=== PATIENT | female | born 1960 | race Caucasian/White ===

== ENCOUNTER 2017-02-20 17:17 | Emergency (ER) | payer MEDICAID, OTHER ==
--- NOTE | 2017-02-20 17:39 | Emergency Department Record ---
History of Present Illness - General Chief Complaint: Numbness Stated Complaint: SWOLLEN/NUMB/PAIN LT ARM Time Seen by Provider: 02/20/17 17:37 Source: Patient Mode of Arrival: Ambulatory Limitations: No limitations - History of Present Illness Initial Comments: The patient is here due to feeling her L arm is numb and swollen for 6 hours. She has a hx of arm DVT's and it feels like another one. There is no reported CP , SOB, dyspnea, fever, chills, or cough. The patient also feels like her L eye area is swollen also. She does take Xarelto for DVT and was off it for some time but restarted it 3-4 weeks ago. Onset/Timin -: Hour(s) Location: Left arm, Left face Quality: Numb, Tingling - [place] Coma Scale Eye Response: (4) Open spontaneously Motor Response: (6) Obeys commands Verbal Response: (5) Oriented [place] Total: 15 - Related Data Home Medications: Home Medications Medication Instructions Recorded Confirmed Last Taken Alpha Lipoic Acid 600 mg PO BID 02/20/17 02/20/17 02/20/17 Diazepam [Valium] 2 mg PO TID 02/20/17 02/20/17 02/20/17 Ergocalciferol (Vitamin D2) 50,000 unit PO WEEKLY 02/20/17 02/20/17 02/20/17 [Vitamin D2] Fentanyl [Duragesic] 100 mcg TD Q72H 02/20/17 02/20/17 Unknown Fluoxetine HCl [Prozac] 20 mg PO DAILY 02/20/17 02/20/17 02/20/17 Folic Acid 1 mg PO DAILY 02/20/17 02/20/17 02/20/17 Guaifenesin/Dm/Pseudoephedrine 474 ml PO DAILY 02/20/17 02/20/17 02/20/17 [Actinel Liquid] Hydroxychloroquine Sulfate 200 mg PO DAILY 02/20/17 02/20/17 02/20/17 [Plaquenil] Lansoprazole [Prevacid] 30 mg PO BID 02/20/17 02/20/17 02/20/17 Levothyroxine Sodium [Synthroid] 137 mcg PO DAILY 02/20/17 02/20/17 02/20/17 Melatonin 5 mg PO QHS 02/20/17 02/20/1717 Methocarbamol [Robaxin-750] 750 mg PO QID 02/20/17 02/20/17 02/20/17 Methotrexate [Xatmep] 2.5 mg PO WEEKLY 02/20/17 02/20/17 02/20/17 Ondansetron HCl [Zofran] 4 mg PO BID 02/20/17 02/20/17 02/20/17 Oxycodone HCl/Acetaminophen 1 each PO Q6H PRN 02/20/17 02/20/17 02/20/17 [Percocet 7.5mg/325mg] Pilocarpine HCl [Salagen] 5 mg PO TID 02/20/17 02/20/17 02/20/17 Pregabalin [Lyrica] 50 mg PO TID 02/20/17 02/20/17 02/20/17 Propranolol HCl [Inderal LA] 80 mg PO DAILY 02/20/17 02/20/17 02/20/17 Rivaroxaban [Xarelto] 10 mg PO DAILY 02/20/17 02/20/17 02/20/17 Allergies/Adverse Reactions: Allergies Allergy/AdvReac Type Severity Reaction Status Date / Time acetaminophen [From Vicodin] AdvReac NAUSEA AND Verified 02/20/17 17:35 VOMITING hydrocodone [From Vicodin] AdvReac NAUSEA AND Verified 02/20/17 17:35 VOMITING Travel Screening - Travel/Exposure Within Last 30 Days Have you traveled within the last 30 days?: No - Travel/Exposure Within Last Year Have you traveled outside the [place] in the last year?: No - Additonal Travel Details Have you been exposed to anyone with a communicable illness?: No - Travel Symptoms Symptom Screening: None Review of Systems Constitutional: Denies: Chills, Fever, Malaise, Weakness Eyes: Denies: Eye discharge ENT: Denies: Congestion Respiratory: Denies: Cough, Dyspnea Cardiovascular: Denies: Chest pain, Dyspnea on exertion, Palpitations Neurological: Denies: Abnormal gait, Confusion, Weakness Past Medical History - SOCIAL HISTORY Smoking Status: Never smoker Alcohol Use: None Drug Use: None - RESPIRATORY Hx Respiratory Disorders: Yes Hx Pneumonia: Yes - CARDIOVASCULAR Hx Cardio Disorders: No - NEURO Hx Neuro Disorders: Yes Hx CVA: Yes Hx Dementia: Yes Hx Seizures: Yes - GI Hx GI Disorders: Yes Hx Irritable Bowel: Yes Hx Nausea/Vomiting: Yes Comment:: gastric bypass - Hx Genitourinary Disorders: No - ENDOCRINE Hx Endocrine Disorders: Yes Comment:: lupus, connective tissue disease. - PSYCH Hx Psych Problems: Yes Hx Anxiety: Yes Hx Depression: Yes - HEMATOLOGY/ONCOLOGY Hx Hematology/Oncology Disorders: Yes Hx Cancer: Yes (breast) Hx Chemotherapy: Yes Hx Radiation Therapy: Yes Hx Blood Transfusions: Yes Hx Blood Transfusion Reaction: No Family Medical History Any Significant Family History?: No Physical Exam - General General Appearance: Alert, Oriented x3, Cooperative, No acute distress - Head Head exam: Atraumatic, Normocephalic, Normal inspection - Eye Eye exam: Normal appearance, PERRL, Periorbital swelling (L very mild and nontender.). negative: Periorbital tenderness - ENT Throat exam: Normal inspection. negative: Tonsillar erythema, Tonsillar exudate - Neck Neck exam: Normal inspection, Full ROM. negative: Tenderness - Respiratory Respiratory exam: Normal lung sounds bilaterally. negative: Respiratory distress - Cardiovascular Cardiovascular Exam: Regular rate, Normal rhythm, Normal heart sounds - GI/Abdominal GI/Abdominal exam: Soft, Normal bowel sounds. negative: Tenderness - Extremities Extremities exam: Full ROM. negative: Normal inspection (There is mild edema to the L arm diffusely from the shoulder to the hand. The radial pulses are strong and equal bilaterally.), Calf tenderness, Tenderness - Skin Skin exam: Pallor Course Vital Signs 02/20/17 17:36 Temperature 98.7 F Pulse Rate [ 66 Pulse Ox Probe] Respiratory 18 Rate Blood Pressure 91/57 [Left Arm] Pulse Ox 95 - Reevaluation(s) Reevaluation #1: The patient is doing well. I did discuss the options with her and she would like the doppler test tonight and would like to go to [facility]. Because of that I did discuss the case with Dr. Davenport and he accepts the patient in an ER to ER transfer. The patient is very stable at this time and is up walking around with no difficulty or problems. She will drive to [facility] ER for the doppler test. I also did discuss her low Bp with her and she state that is normal for her. She has no dizziness or lightheadedness and is ambulating normally. 02/20/17 18:33 02/20/17 18:50 Medical Decision Making - Data Complexity MDM Data: Labs Ordered and/or Reviewed, X-Ray Ordered and/or Reviewed - Lab Data Result diagrams: 02/20/17 17:54 02/20/17 17:54 - Radiology Data Radiology results: Report reviewed (CXR: No acute process per Rad.) Disposition Disposition: Transfer Clinical Impression: Left arm swelling Disposition: Acute Care Hospital Transfer Transfer To: [facility] Reason For Transfer: Doppler Accepting Physician: Ethel Time Discussed w/Accepting Physician: 18:35 Condition: (2) Stable Forms: Patient Portal Access Time of Disposition: 18:35 Quality - Quality Measures Quality Measures: N/A - Blood Pressure Screening View Details: Yes Does Patient Have Any of the Following: No Blood Pressure Classification: Normal BP Reading Systolic Measurement: 88 Diastolic Measurement: 50 Screening for High Blood Pressure: < Normal BP, F/U Not Required > [G8783]
[2017-02-20 18:01] LABS: EOS % 0.4 % (0-6); GRAN % 77.4 % (47-80); HEMATOCRIT 32.7 % (35.0-47.0); HEMOGLOBIN 10.6 gm/dl (11.6-16.0); LYMPH % 17.8 % (16-45); MEAN CORPUSCULAR HGB CONC 32.4 g/dl (32-36); MEAN PLATELET VOLUME 10.4 fl (7.4-10.4); MONO % 4.4 % (0-9); PLATELET COUNT 106 K/uL (130-400); RED BLOOD COUNT 3.37 M/uL (3.80-5.40); RED CELL DISTRIBUTION WIDTH 13.8 % (11.5-14.5); WHITE BLOOD COUNT W/O DIFF 2.7 K/uL (4.2-12.2)
[2017-02-20 18:02] LABS: MEAN CORPUSCULAR HEMOGLOBIN 31.4 pg (27-33)
[2017-02-20 18:15] LABS: INR 1.21; PARTIAL THROMBOPLASTIN TIME 31.7 SECONDS (24.5-39.1); PROTHROMBIN TIME (PATIENT) 13.1 SECONDS (9.5-12.1)
[2017-02-20 18:19] LABS: ALB/GLOB RATIO 1.5 (1.1-1.8); ALBUMIN 3.6 g/dL (4.0-5.0); ALKALINE PHOSPHATASE 120 U/L (35-104); ALT/SGPT 17 U/L (<33); AST/SGOT 23 U/L (10.0-35.0); BLOOD UREA NITROGEN 15 mg/dL (6-20); CREATININE 0.7 mg/dL (0.5-0.9); EST GLOMERULAR FILTRATION RATE > 60 mL/min; GLUCOSE,RANDOM 118 mg/dL (74-109)
--- NOTE | 2017-02-21 14:50 | RADIOLOGY REPORT ---
EXAM: CHEST, TWO VIEWS HISTORY: PATIENT HAS SWELLING AND NUMBNESS IN THE LEFT ARM. PATIENT HAS A HISTORY OF BLOOD CLOTS IN THE LEFT ARM. TECHNIQUE: Two views of the chest are provided without comparison examinations. The examination is limited due to right hemithorax periphery being cut off from the field of view. FINDINGS: The cardiomediastinal silhouette is within normal limits for size and contour. The qing appear unremarkable. There is a loop recorder identified on the left anterior chest. Postoperative changes are identified in the region of the left axilla. There is no radiographic evidence of a focal infiltrate or pleural effusion. Within the limits of the examination, no gross pneumothorax is noted. Blunting of the right costophrenic angle may be related to pleural thickening. IMPRESSION: LIMITED CHEST X-RAY DEMONSTRATES NO GROSS RADIOGRAPHIC EVIDENCE OF AN ACUTE INTRATHORACIC PROCESS DISCUSSED ABOVE. JOB NUMBER: [id number] MTDD
== END 2017-02-20 18:48 | disposition short-term general hospital (02) ==
LOC: ER 17:17
DX: R60.0 Localized edema (principal); R20.0 Anesthesia of skin
CPT/HCPCS: 71020; 80053; 85025; 85379; 85610; 85730; 99283; 99284

== ENCOUNTER 2017-05-23 11:23 | Emergency (ER) | payer MEDICAID ==
--- NOTE | 2017-05-23 11:44 | Emergency Department Record ---
History of Present Illness - General Chief Complaint: Seizures Stated Complaint: LEFT SIDE WEAKNESS Time Seen by Provider: 05/23/17 11:26 Source: Patient, EMS Mode of Arrival: EMS Limitations: No limitations - History of Present Illness Initial Comments: 56 yo female presents with several concerns. She reports that she had a seizure today. This was the first seizure in about one year. She reports she had had seizures since prior strokes about 2 years ago. The seizure today lasted about 5 minutes per EMS. The patient returned to baseline. She presents with about 3 days of Left facial, arm and foot numbness that is new. She reports her walking for about a week has been very difficult with stumbling. She does not normally use assistance to walk. She has been using chairs and holding doorways to walk. She denies a fall in the last week. Her prior CVA gave her left sided weakness. She is on Xarelto. She has been treated for cervical cancer and breast cancer in the past. Her PCP, Neurologist and Psychiatrist are in [place]. 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 No recent headaches, christian pain or vision loss. Hx of Lupus, DVT, Gastric bypass, Hypothyroid, DVT's, fibromyalgia, Hx of a Port. MD Complaint: Seizure -: Hour(s) (1) Description of Episode: Loss of consciousness -: Minutes(s) (5) Witnessed: Yes - by bystander Trauma: No Seizure History: Known seizure disorder (Last Seizure was one year ago) Place: Home Possible Precipitating Event: None Associated Symptoms: Other Treatments Prior to Arrival: None - [place] Coma Scale Eye Response: (4) Open spontaneously Motor Response: (6) Obeys commands Verbal Response: (5) Oriented [place] Total: 15 - Related Data Home Medications Medication Instructions Recorded Confirmed Last Taken Aripiprazole [Abilify] 2 mg PO DAILY 05/23/17 05/23/17 Unknown Aspirin [Aspir-Low] 81 mg PO DAILY 05/23/17 05/23/17 Unknown Calcium Carbonate [Calcium] 500 mg PO BID 05/23/17 05/23/17 Unknown Calcium Polycarbophil [Fibercon] 625 mg PO QHS 05/23/17 05/23/17 Unknown Diazepam [Valium] 2 mg PO TID 05/23/17 05/23/17 Unknown Gabapentin [Neurontin] 100 mg PO TID 05/23/17 05/23/17 Unknown Levetiracetam [Keppra Xr] 750 mg PO BID 05/23/17 05/23/17 Unknown Ondansetron [Zofran Odt] 8 mg PO DAILY 05/23/17 05/23/17 Unknown Oxycodone HCl/Acetaminophen 1 each PO Q6H PRN 05/23/17 05/23/17 Unknown [Percocet 7.5mg/325mg] Pilocarpine HCl [Salagen] 5 mg PO TID 05/23/17 05/23/17 Unknown Vit 108/Iron/Folic AC 1 each PO DAILY 05/23/17 05/23/17 Unknown [ One Tablet] Allergies Allergy/AdvReac Type Severity Reaction Status Date / Time acetaminophen [From Vicodin] AdvReac NAUSEA AND Verified 02/20/17 17:35 VOMITING hydrocodone [From Vicodin] AdvReac NAUSEA AND Verified 02/20/17 17:35 VOMITING Review of Systems Constitutional: Denies: Chills, Fever, Malaise, Weakness Eyes: Denies: Eye discharge, Eye pain, Photophobia, Vision change ENT: Denies: Congestion, Throat pain Respiratory: Denies: Cough, Dyspnea, Hemoptysis, Stridor, Wheezes Cardiovascular: Denies: Chest pain, Dyspnea on exertion, Palpitations, Syncope Endocrine: Denies: Fatigue Gastrointestinal: Denies: Abdominal pain, Diarrhea, Nausea, Vomiting Genitourinary: Denies: Dyspareunia, Dysuria, Urgency Musculoskeletal: Denies: Arthralgia, Back pain, Joint swelling, Myalgia Skin: Denies: Bruising, Change in color, Rash Neurological: Reports: Abnormal gait, Numbness, Seizure, Weakness. Denies: Confusion, Headache, Tingling, Tremors, Vertigo Psychiatric: Denies: Anxiety Hematological/Lymphatic: Denies: Blood Clots, Easy bleeding, Easy bruising, Swollen glands Past Medical History - SOCIAL HISTORY Smoking Status: Never smoker Drug Use: None - RESPIRATORY Hx Respiratory Disorders: Yes Hx Pneumonia: Yes - CARDIOVASCULAR Hx Cardio Disorders: No - NEURO Hx Neuro Disorders: Yes Hx CVA: Yes Hx Dementia: Yes Hx Seizures: Yes - GI Hx GI Disorders: Yes Hx Irritable Bowel: Yes Hx Nausea/Vomiting: Yes Comment:: gastric bypass - Hx Genitourinary Disorders: No - ENDOCRINE Hx Endocrine Disorders: Yes Comment:: lupus, connective tissue disease. - MUSCULOSKELETAL Hx Musculoskeletal Disorders: Yes Hx Fibromyalgia: Yes Comment:: Degen disk dx., connective tissue dx., costo chondritis - PSYCH Hx Psych Problems: Yes Hx Anxiety: Yes Hx Depression: Yes - HEMATOLOGY/ONCOLOGY Hx Hematology/Oncology Disorders: Yes Hx Cancer: Yes (breast) Hx Chemotherapy: Yes Hx Radiation Therapy: Yes Hx Blood Transfusions: Yes Hx Blood Transfusion Reaction: No Physical Exam - General General Appearance: Alert, Oriented x3, Cooperative, No acute distress Limitations: No limitations - Head Head exam: Atraumatic, Normocephalic, Normal inspection - Eye Eye exam: Normal appearance. negative: PERRL, Conjunctival injection, EOMI, Periorbital swelling - ENT ENT exam: Normal exam, Mucous membranes moist, Normal orophraynx Ear exam: Normal external inspection Nasal Exam: Normal inspection. negative: Discharge, Sinus tenderness Mouth exam: Normal external inspection, Tongue normal Teeth exam: Normal inspection. negative: Dental caries Throat exam: Normal inspection. negative: Tonsillar erythema, Tonsillar exudate - Neck Neck exam: Normal inspection, Full ROM. negative: Lymphadenopathy, Tenderness - Respiratory Respiratory exam: Normal lung sounds bilaterally. negative: Respiratory distress - Cardiovascular Cardiovascular Exam: Regular rate, Normal rhythm, Normal heart sounds Peripheral Pulses: 2+: Radial (R), Radial (L) - GI/Abdominal GI/Abdominal exam: Soft. negative: Tenderness - Rectal Rectal exam: Deferred - exam: Deferred - Extremities Extremities exam: Normal inspection, Full ROM, Normal capillary refill. negative: Tenderness - Back Back exam: Reports: Normal inspection, Full ROM. Denies: CVA tenderness (R), CVA tenderness (L), Muscle spasm, Rash noted, Tenderness - Neurological Neurological exam: Alert, CN II-XII intact, Other (No upper extremity PND, subjective altered and diminished sensation in the left hand). negative: Motor sensory deficit - Psychiatric Psychiatric exam: Normal affect, Normal mood - Skin Skin exam: Dry, Intact, Normal color, Warm Course - Reevaluation(s) Reevaluation #1: 05/23/17 12:12 EKG 12:04 Sinus alfreda, intervals Qtc 490, axis left, ST no acute changes. NS ST changes. NO OLD. 05/23/17 12:15 The CBC was reviewed. The WBC is 2.4 with prior of 2.7 in February of 2017. Her Hgb is 7.8 with prior being 10.6. Plt are 105 with prior of 106. 05/23/17 12:25 The patient had orthostatics vitals performed and ambulated She ambulated on her own with the need for a few corrections with unsteadiness A rectal examination was completed. No gross blood. Brown stool. Trace positive heme. 05/23/17 12:31 The patient had a witnessed 1 minute seizure that was generalized Ativan IVP given. The final HCT was negative. 05/23/17 12:34 No acute changes on the CMP or Troponin 05/23/17 12:40 05/23/17 12:43 The patient did not take her Keppra yet today. She will be given her dose when awake and alert. 05/23/17 12:52 I MORGAN Palomares at [facility] He accepts the patient for transfer Per bed control there are high volumes at [facility] which will delay 05/23/17 12:53 The patient is alert back to baseline. She may take her home medications which include valium, gabapentin, and Keppra 05/23/17 12:59 05/23/17 13:32 [facility] called with bed assignment. Patient is stable for transfer. Medical Decision Making - Lab Data Result diagrams: 05/23/17 11:35 05/23/17 11:35 Disposition Disposition: Transfer Clinical Impression: Seizure, Arm paresthesia, left Anemia Qualifiers: Anemia type: other cause Other causes of anemia: other cause, not classified Qualified Code(s): D64.89 - Other specified anemias Disposition: Acute Care Hospital Transfer Transfer To: [facility] Reason For Transfer: Seizure, Weakness,Anemia,Numbness Accepting Physician: Marielle Time Discussed w/Accepting Physician: 12:51 Condition: (2) Stable Forms: Patient Portal Access Time of Disposition: 12:14 Quality - Quality Measures Quality Measures: N/A - Blood Pressure Screening Does Patient Have Any of the Following: No Blood Pressure Classification: Normal BP Reading Systolic Measurement: 87 Diastolic Measurement: 45 Screening for High Blood Pressure: < Normal BP, F/U Not Required > [G8783]
[2017-05-23] MEDS ORDERED: 0.9 % SODIUM CHLORIDE 1,000 ML BAG IV ONE (11:46)
[2017-05-23 11:51] LABS: EOS % 1.7 % (0-6); GRAN % 64.2 % (47-80); HEMATOCRIT 24.2 % (35.0-47.0); HEMOGLOBIN 7.8 gm/dl (11.6-16.0); LYMPH % 29.5 % (16-45); MEAN CELL VOLUME 95.7 fl (81-97); MEAN CORPUSCULAR HEMOGLOBIN 30.8 pg (27-33); MEAN CORPUSCULAR HGB CONC 32.2 g/dl (32-36); MEAN PLATELET VOLUME 11.3 fl (7.4-10.4); MONO % 4.6 % (0-9); PLATELET COUNT 105 K/uL (130-400); RED BLOOD COUNT 2.53 M/uL (3.80-5.40); RED CELL DISTRIBUTION WIDTH 13.6 % (11.5-14.5); WHITE BLOOD COUNT W/O DIFF 2.4 K/uL (4.2-12.2)
[2017-05-23 12:03] LABS: INR 1.08; PARTIAL THROMBOPLASTIN TIME 29.6 SECONDS (24.5-39.1); PROTHROMBIN TIME (PATIENT) 11.7 SECONDS (9.5-12.1)
[2017-05-23 12:17] LABS: BLOOD UREA NITROGEN 16 mg/dL (6-20); CREATININE 0.8 mg/dL (0.5-0.9); EST GLOMERULAR FILTRATION RATE > 60 mL/min
[2017-05-23 12:18] LABS: TOTAL PROTEIN 5.9 g/dL (6.6-8.7)
[2017-05-23 12:20] LABS: GLUCOSE,RANDOM 85 mg/dL (74-109)
[2017-05-23 12:23] LABS: ALB/GLOB RATIO 1.3 (1.1-1.8); ALBUMIN 3.3 g/dL (4.0-5.0); ALKALINE PHOSPHATASE 150 U/L (35-104); ALT/SGPT 24 U/L (<33); AST/SGOT 28 U/L (10.0-35.0)
[2017-05-23] MEDS ORDERED: LORAZEPAM 2 MG/ML VIAL IV ONE ×2 (12:34→12:47)
[2017-05-23] MEDS ORDERED: SODIUM CHLORIDE 0.9% IV ONE (12:35)
[2017-05-23] MEDS ORDERED: FOSPHENYTOIN SODIUM IV ONE (12:35)
[2017-05-23] MEDS ORDERED: LEVETIRACETAM 500 MG TABLET PO ONE ×2 (12:43→13:13)
--- NOTE | 2017-05-24 07:16 | CT SCAN REPORT ---
EXAM: HEAD CT WITHOUT CONTRAST HISTORY: SEIZURE, PRIOR SEIZURE ONE YEAR AGO AND STROKE EIGHTEEN MONTHS AGO. TECHNIQUE: Axial CT scan of the head was performed without IV contrast. Comparison: No prior CT at this institution with which to compare. Comparison is made with the prior head CT from 04/05/16 performed at [facility] which is viewed at a separate workstation within the [facility] Radiology Department. FINDINGS: No definite acute intracranial hemorrhage identified. No focal mass effect or midline shift apparent. No definite acute infarct or intracranial mass lesion is seen. No depressed calvarial fracture is evident. If the patient's neurologic symptoms warrant, follow-up MRI of the brain may be useful for further evaluation if not contraindicated. IMPRESSION: EMERGENCY NONCONTRAST HEAD CT APPEARS NEGATIVE WITH NO DEFINITE ACUTE INTRACRANIAL HEMORRHAGE OR FOCAL MASS EFFECT IDENTIFIED. JOB NUMBER: [id number] MTDD
== END 2017-05-23 13:49 | disposition short-term general hospital (02) ==
LOC: ER 11:23
DX: G40.909 Epilepsy, unspecified, not intractable, without status epilepticus (principal); R20.0 Anesthesia of skin; D64.89 Other specified anemias; I69.854 Hemiplegia and hemiparesis following other cerebrovascular disease affecting left non-dominant side; Z79.01 Long term (current) use of anticoagulants; Z85.3 Personal history of malignant neoplasm of breast; Z85.41 Personal history of malignant neoplasm of cervix uteri
CPT/HCPCS: 99285 ×2; 96374; 96361; 83735; 85025; 85730; 85610; 80053; 84484; 70450; 93005; 93010; J2060; J7030